=== PATIENT | female | born 1995 | race Two or more races ===

== ENCOUNTER 2023-07-11 20:25 | Emergency (ER) | payer OTHER ==
[~2023-07-11] VITALS: Ht 165.1 cm; Wt 59.0 kg
[2023-07-12] MEDS ORDERED: PEPCID40 MG PO (02:23)
[2023-07-12] MEDS ORDERED: ONDANSETRON ODT4 MG PO (02:23)
[2023-07-12] MEDS ORDERED: CEPHALEXIN500 MG PO (02:23)
== END 2023-07-12 02:41 ==
LOC: ER 20:25
PROVIDERS: General Practice
DX: R10.13 Epigastric pain (principal); K52.9 Noninfective gastroenteritis and colitis, unspecified; K51.80 Other ulcerative colitis without complications; N39.0 Urinary tract infection, site not specified
CPT/HCPCS: 36415; 96365; 96366; 99284; J0696; J2405; J3490; J7042